=== PATIENT | female | born 1995 | race Two or more races ===

== ENCOUNTER 2021-09-08 08:11 | Emergency (ER) | payer OTHER ==
[~2021-09-08] VITALS: Ht 149.9 cm; Wt 85.7 kg
[2021-09-08] MEDS ORDERED: AZIT250T9 PO (11:04)
[2021-09-08] MEDS ORDERED: cefTRIAXone W LIDOCAINE 1 GM IM IM ONE (11:15)
[2021-09-08] MEDS ORDERED: cefTRIAXone SOD 1,000 MG VL ONE (11:25)
[2021-09-08] MEDS ORDERED: IOHEXOL 350 MG/ML 100ML IJ ONE (13:11)
[2021-09-08 13:15] VITALS: BP 131/82
== END 2021-09-08 15:17 | disposition home or self-care (01) ==
LOC: ER 08:11
DX: U07.1 COVID-19 (principal); J06.9 Acute upper respiratory infection, unspecified
CPT/HCPCS: 36415; 71045; 71275; 85379; 87426; 96372; 99285; J0696; Q9967

== ENCOUNTER 2021-10-31 18:09 | Emergency (ER) | payer OTHER ==
[~2021-10-31] VITALS: Ht 157.5 cm; Wt 75.0 kg
[~2021-10-31 18:09] MED LIST: AZIT250T9 PO
[2021-10-31 18:22] VITALS: BP 121/77
[2021-10-31 23:14] LABS: Urine Bacteria FEW /hpf (None Seen); Urine Blood 3+ /uL (Negative); Urine Specific Gravity 1.008 (1.001-1.035); Urine WBC 47 /hpf (0 - 5)
[2021-10-31 23:45] LABS: Basophils # (auto) 0 10 ^3/uL (0-0.2); Eosinophils # (auto) 0.1 10 ^3/uL (0-0.8); Monocytes # (auto) 0.6 10 ^3/uL (0-1.3); Nucleated Red Blood Cells % 0.1 %
[2021-10-31 23:47] LABS: Basophils % (auto) 0.2 % (0.0-2.0); Eosinophils % (auto) 1.3 % (0.0-7.0); Hemoglobin 13.6 g/dL (12.2-16.2); Lymphocytes % (auto) 32.1 % (10.0-50.0); Mean Corpuscular Hemoglobin 26.3 pg (28.0-32.0); Mean Corpuscular Hgb Conc. 32.5 g/dL (32.0-36.0); Mean Corpuscular Volume 80.8 fL (80.0-100.0); Neutrophils # (auto) 5.7 10 ^3/uL (1.6-8.6); Neutrophils % (auto) 60.4 % (37.0-80.0); Red Blood Cells 5.19 10^6/uL (4.0-5.20); Red Cell Distribution Width 15.3 % (11.8-14.3); White Blood Cell 9.5 10^3/uL (4.4-10.8)
[2021-11-01 00:02] LABS: Albumin 3.4 g/dL (3.4-5.0); BUN/Creatinine Ratio 6.3; Calcium 8.4 mg/dL (8.5-10.1); Magnesium 2.4 mg/dL (1.6-2.6); Potassium 3.9 mmol/L (3.5-5.1)
[2021-11-01 00:05] LABS: Bilirubin, Total 0.2 mg/dL (0.2-1.0); Phosphorus 3.2 mg/dL (2.5-4.90); Total Protein 7.5 g/dL (6.4-8.2)
[2021-11-01] MEDS ORDERED: ALUM & MAG HYDROX-SIMETH LIQ(MAALOX) 30 ML PO ONE (02:15)
[2021-11-01] MEDS ORDERED: FAMOTIDINE 20 MG TAB PO ONE (02:15)
[2021-11-01] MEDS ORDERED: ONDANSETRON ODT 4 MG TAB PO ONE (02:15)
[2021-11-01] MEDS ORDERED: LIDOCAINE VISCOUS 2% 15ML UD PO ONE (02:15)
[2021-11-01] MEDS ORDERED: CEPH-322 PO (04:43)
== END 2021-11-01 05:13 | disposition home or self-care (01) ==
LOC: ER 18:09
DX: R13.10 Dysphagia, unspecified (principal); N39.0 Urinary tract infection, site not specified; R11.2 Nausea with vomiting, unspecified; Z90.49 Acquired absence of other specified parts of digestive tract
CPT/HCPCS: 36415; 70360; 71045; 80053; 81001; 81025; 83735; 84100; 85025; 99284; Q0162

== ENCOUNTER 2022-06-01 10:06 | Emergency (ER) | payer OTHER ==
[~2022-06-01] VITALS: Ht 149.9 cm; Wt 73.1 kg
[~2022-06-01 10:06] MED LIST changes: +CEPH-322 PO
[2022-06-01] MEDS ORDERED: MAALOX PLUS or MAALOX 30 ML PO ONE (10:30)
[2022-06-01] MEDS ORDERED: ONDANSETRON ODT 4 MG TAB PO ONE (10:30)
[2022-06-01] MEDS ORDERED: LIDOCAINE VISCOUS 2% 15ML UD PO ONE (10:30)
[2022-06-01] MEDS ORDERED: FAMOTIDINE 20 MG TAB PO ONE (10:30)
[2022-06-01 10:47] LABS: Basophils # (auto) 0 10 ^3/uL (0-0.2); Basophils % (auto) 0.3 % (0.0-2.0); Eosinophils # (auto) 0.1 10 ^3/uL (0-0.8); Eosinophils % (auto) 1.3 % (0.0-7.0); Hematocrit 41.7 % (36.0-46.0); Hemoglobin 14.2 g/dL (12.2-16.2); Lymphocytes # (auto) 1.8 10 ^3/uL (0.4-5.4); Lymphocytes % (auto) 22.3 % (10.0-50.0); Mean Corpuscular Hemoglobin 27.5 pg (28.0-32.0); Mean Corpuscular Volume 80.9 fL (80.0-100.0); Monocytes # (auto) 0.4 10 ^3/uL (0-1.3); Monocytes % (auto) 4.8 % (0.0-12.0); Neutrophils # (auto) 5.6 10 ^3/uL (1.6-8.6); Neutrophils % (auto) 71.3 % (37.0-80.0); Nucleated Red Blood Cells % 0.1 %; Red Blood Cells 5.15 10^6/uL (4.0-5.20); White Blood Cell 7.9 10^3/uL (4.4-10.8)
[2022-06-01 11:00] LABS: Albumin 3.7 g/dL (3.4-5.0); Calcium 8.5 mg/dL (8.5-10.1); Potassium 4.1 mmol/L (3.5-5.1)
[2022-06-01 11:06] LABS: BUN/Creatinine Ratio 15.3; Bilirubin, Total 0.2 mg/dL (0.2-1.0); Total Protein 7.1 g/dL (6.4-8.2)
[2022-06-01 15:24] VITALS: BP 113/78
== END 2022-06-01 15:25 | disposition home or self-care (01) ==
LOC: ER 10:06
DX: K44.9 Diaphragmatic hernia without obstruction or gangrene (principal); Z90.49 Acquired absence of other specified parts of digestive tract
CPT/HCPCS: 36415; 71046; 80053; 84484; 85025; 93005; 99285; Q0162